=== PATIENT | female | born 1935 ===

== ENCOUNTER 2017-12-07 14:21 | Emergency (ER) | payer MEDICAID, MEDICARE ==
[2017-12-07 14:35] VITALS: RESP 18; TEMP 98; O2SAT 98
[2017-12-07 15:45] LABS: BASO # 0.1 K/uL (0.0-0.2); BASO % 1.3 % (0.0-2.0); EOS # 0.1 K/uL (0.0-0.7); EOS % 2.5 % (0.0-4.0); HEMOGLOBIN 11.3 g/dL (11.0-16.0); LYMPH # 1.4 K/uL (1.0-4.3); LYMPH % 30.1 % (20.0-40.0); MEAN CELL VOLUME 89.3 fL (81.0-99.0); MEAN CORPUSCULAR HEMOGLOBIN 30.5 pg (27.0-31.0); MEAN CORPUSCULAR HGB CONC 34.2 g/dL (33.0-37.0); MEAN PLATELET VOLUME 8.2 fL (7.2-11.7); MONO # 0.4 K/uL (0.0-0.8); MONO % 8.6 % (0.0-10.0); NEUT # 2.6 K/uL (1.8-7.0); NEUT % 57.5 % (50.0-75.0); RBC 3.7 Mil/uL (3.80-5.20); RED CELL DISTRIBUTION WIDTH 13.2 % (11.5-14.5); WHITE BLOOD COUNT 4.5 K/uL (4.8-10.8)
[2017-12-07 16:03] LABS: ALB/GLOB RATIO 1.1 (1.0-2.1); ALBUMIN 4.1 g/dL (3.5-5.0); ALT/SGPT 16 U/L (9-52); AST/SGOT 22 U/L (14-36); BLOOD UREA NITROGEN 32 mg/dL (7-17); CALCIUM 9.6 mg/dl (8.6-10.4); GFR AFRICAN-AMERICAN > 60; GFR NON-AFRICAN AMERICAN 53
[2017-12-07 16:09] LABS: B-TYPE NATRIURETIC PEPTIDE 122 pg/mL (0-900)
[2017-12-07] MEDS ORDERED: Sodium Chloride 0.9% 1,000 ML IV ONE (16:10)
--- NOTE | 2017-12-07 16:24 | RAD ---
HISTORY: Cough COMPARISON: No prior study available for comparison. TECHNIQUE: Chest PA and lateral FINDINGS: LUNGS: No active pulmonary disease. PLEURA: No significant pleural effusion identified. No pneumothorax apparent. CARDIOVASCULAR: Normal. OSSEOUS STRUCTURES: Mild multilevel degenerative spondylosis of the thoracic spine. . VISUALIZED UPPER ABDOMEN: Normal. OTHER FINDINGS: None. IMPRESSION: No acute infiltrates.
--- NOTE | 2017-12-07 17:02 | C.PDOC ---
Time Seen by Provider: 12/07/17 14:59 Chief Complaint (Nursing): Cough, Cold, Congestion History Per: Patient Onset/Duration Of Symptoms: Days (few) Current Symptoms Are (Timing): Still Present Associated Symptoms: Cough, Nasal Congestion Severity: Mild Additional History Per: Prior Records Past Medical History Reviewed: Historical Data, Nursing Documentation, Vital Signs Vital Signs: Last Vital Signs Temp 98 F 12/07/17 14:31 Pulse 73 12/07/17 14:31 Resp 18 12/07/17 14:31 BP 154/66 H 12/07/17 14:31 Pulse Ox 98 12/07/17 14:31 - Medical History PMH: Diabetes, HTN Family History: States: Unknown Family Hx - Social History Hx Tobacco Use: No Hx Alcohol Use: No Hx Substance Use: No Review Of Systems Except As Marked, All Systems Reviewed And Found Negative. Constitutional: Negative for: Fever ENT: Positive for: Nose Congestion. Negative for: Throat Pain Respiratory: Positive for: Cough. Negative for: Hemoptysis Gastrointestinal: Negative for: Vomiting, Abdominal Pain Musculoskeletal: Negative for: Neck Pain, Back Pain Neurological: Negative for: Weakness, Numbness Physical Exam - Physical Exam Appears: Non-toxic, No Acute Distress Skin: Normal Color, Warm, Dry, No Rash Head: Atraumatic, Normacephalic Eye(s): bilateral: PERRL, EOMI Oral Mucosa: Moist Throat: Normal Neck: Normal ROM, Supple Cardiovascular: Rhythm Regular Respiratory: Normal Breath Sounds, No Accessory Muscle Use Gastrointestinal/Abdominal: Soft, No Tenderness Extremity: Normal ROM, No Pedal Edema, No Calf Tenderness Neurological/Psych: Oriented x3, Normal Speech, Normal Cognition, Normal Motor, Normal Sensation ED Course And Treatment - Laboratory Results Result Diagrams: 12/07/17 15:37 12/07/17 15:37 ECG: Interpreted By Me, Viewed By Me ECG Rhythm: Sinus Rhythm ECG Interpretation: No Acute Changes Rate From EC O2 Sat by Pulse Oximetry: 98 Pulse Ox Interpretation: Normal - Radiology CXR: Viewed By Me, Read By Radiologist CXR Interpretation: Yes: No Acute Disease Progress Note: Pt feels better and wants to go home. Reassessment Condition: Improved Progress - Interventions Interventions:: Observation, Intravenous fluid - Medications Administered Oral: Antihistamine(H-1) - Data Reviewed Data Reviewed: Lab, Diagnostic imaging, EKG, Old records - Patient Status Patient status: Mostly improved - Continuity of Care Discussed patient case with:: Patient, ED Nurse - Patient Plan Patient Plan: Discharge, F/U with PCP, Continue present meds Disposition Counseled Patient/Family Regarding: Studies Performed, Diagnosis, Need For Followup - Disposition Disposition: HOME/ ROUTINE Disposition Time: 17:03 Condition: IMPROVED Additional Instructions: Take an daily antihistimine. Follow up with your doctor. Return to the ER if you develop fever, shortness of breath, vomiting, chest pain, worsening of symptoms or if you have any other concerns. Instructions: Cough, Runny Nose, and the Common Cold (DC) Forms: [facility] (South African) - Clinical Impression Clinical Impression: Cough, Nasal congestion
[2017-12-07 17:58] VITALS: BP 104/70; PULSE 74
--- NOTE | 2017-12-10 16:31 | CARD ---
APPROVED REPORT EKG Measurement Heart [id number] <Conclusion> Normal sinus rhythm Normal ECG
== END 2017-12-07 17:45 | disposition home or self-care (01) ==
LOC: C.ER 14:21
DX: R09.81 Nasal congestion (principal); R05 Cough; E11.9 Type 2 diabetes mellitus without complications; I10 Essential (primary) hypertension
CPT/HCPCS: 71046; 80053; 83880; 84484; 85025; 93005; 96360; 99284; J7040

== ENCOUNTER 2017-12-21 12:32 | Emergency (ER) | payer MEDICARE, MEDICAID ==
[2017-12-21 12:44] VITALS: PULSE 70; O2SAT 100
[2017-12-21] MEDS ORDERED: Bacitracin 500 Units/gm Oint Foilpak UD TOP ONE (13:06)
--- NOTE | 2017-12-21 13:12 | C.PDOC ---
History Of Present Illness 82 yo female with PMH HTN and diabetes c/o left foot pain x 1.5 week. Pt notes she had stocking on with boots and believes the area was rubbing in her boots. Notes the pain has improved, but states there is some redness prompting concern for infection. Notes the area has not gotten bigger. Denies fever or change in sensation. States she is up to date with tetanus s/p cat bite 6 mo ago. Time Seen by Provider: 12/21/17 12:54 Chief Complaint (Nursing): Lower Extremity Problem/Injury History Per: Patient History/Exam Limitations: no limitations Onset/Duration Of Symptoms: Days (1.5 week) Past Medical History Vital Signs: Last Vital Signs Temp 97.9 F 12/21/17 12:41 Pulse 70 12/21/17 12:41 Resp 16 12/21/17 12:41 BP 118/66 12/21/17 12:41 Pulse Ox 100 12/21/17 13:12 - Medical History PMH: Diabetes, HTN Family History: States: Unknown Family Hx - Social History Hx Tobacco Use: No Hx Alcohol Use: No Hx Substance Use: No Review Of Systems Except As Marked, All Systems Reviewed And Found Negative. Musculoskeletal: Positive for: Foot Pain Physical Exam - Physical Exam Appears: Well, Non-toxic, No Acute Distress Skin: Warm, Dry, Other (1cm circlular blister to the back of the left foot, no dishcarge, no surrouding erythema, no warmth. ) Head: Atraumatic, Normacephalic Eye(s): bilateral: Normal Inspection, EOMI Nose: Normal Oral Mucosa: Moist Neck: Normal ROM, Supple Chest: Symmetrical Back: Normal Inspection Extremity: Normal ROM, Tenderness (Mild ttp over the blister), Capillary Refill (<2 sec) Extremity: Bilateral: Normal Color And Temperature, Normal ROM Pulses: Left Dorsalis Pedis: Normal, Right Dorsalis Pedis: Normal Neurological/Psych: Oriented x3, Normal Speech, Normal Motor, Normal Sensation ED Course And Treatment O2 Sat by Pulse Oximetry: 100 Progress Note: Discussed with pt signs of infection. Discussed currently no evidence of infection. Pt notes it has self imporved over the last week. Instructed to keep monitoring, fill rx for abx if signs of infection arise and follow up with PMD in 1-2 days for wound check. Disposition - Disposition Disposition: HOME/ ROUTINE Disposition Time: 13:06 Condition: STABLE Additional Instructions: Follow up with your PMD in 1-2 days. Return to ER if symptoms persist or worsen. Prescriptions: Cephalexin [cephalexin] 500 mg PO BID #14 cap Mupirocin 2% Ointment [Bactroban Ointment] 1 appl TP TID #1 tube Instructions: Blisters Forms: [email or web address] (Danish) - Clinical Impression Clinical Impression: Blister of foot
[2017-12-21] MEDS ORDERED: Bacitracin 500 Units/gm Oint Foilpak UD ONE (14:07)
[2017-12-21 14:08] VITALS: BP 120/86; RESP 18; TEMP 98.1
== END 2017-12-21 14:08 | disposition home or self-care (01) ==
LOC: C.ER 12:32
DX: S90.822A Blister (nonthermal), left foot, initial encounter (principal); X58.XXXA Exposure to other specified factors, initial encounter; E11.9 Type 2 diabetes mellitus without complications; I10 Essential (primary) hypertension

== ENCOUNTER 2018-02-05 07:52 | Emergency (ER) | payer MEDICARE, OTHER ==
[2018-02-05 07:58] VITALS: BP 142/79; PULSE 75; RESP 17; TEMP 97.9; O2SAT 100
--- NOTE | 2018-02-05 09:12 | C.PDOC ---
History Of Present Illness 82 yo female, hx of htn, dm, presents with dry cough, dry throat, itching, she attributes to an allergy to a cat. pt states she has had symptoms over last week. no fevers, states right "ear clogged". no other complaints Time Seen by Provider: 02/05/18 09:02 Chief Complaint (Nursing): ENT Problem Past Medical History Reviewed: Historical Data, Nursing Documentation, Vital Signs Vital Signs: Last Vital Signs Temp 97.9 F 02/05/18 07:55 Pulse 75 02/05/18 07:55 Resp 17 02/05/18 07:55 BP 142/79 02/05/18 07:55 Pulse Ox 100 02/05/18 09:12 - Medical History PMH: Diabetes, HTN Family History: States: Unknown Family Hx - Social History Hx Tobacco Use: No Hx Alcohol Use: No Hx Substance Use: No Review Of Systems Except As Marked, All Systems Reviewed And Found Negative. Constitutional: Negative for: Fever ENT: Positive for: Nose Congestion, Other (throat itching) Respiratory: Positive for: Cough (dry). Negative for: Sputum Physical Exam - Physical Exam Appears: Well, No Acute Distress, Other (speaking full sentnces in nad) Skin: Normal Color, Warm, Dry Eye(s): bilateral: Normal Inspection, PERRL, EOMI Nose: Normal Throat: Normal, No Erythema, No Exudate Neck: Normal Cardiovascular: Rhythm Regular Respiratory: Normal Breath Sounds Gastrointestinal/Abdominal: Normal Exam, Soft, No Tenderness, No Guarding, No Rebound Back: Normal Inspection Extremity: Normal ROM ED Course And Treatment O2 Sat by Pulse Oximetry: 100 Medical Decision Making Medical Decision Making: suspect allergies, will obtain cxr r/o pna. pt well appearing speakign full sentences, smilgin innad. xr neg. pt well apperaing speaking full sentences. advise outpt fu. Disposition - Disposition Referrals: [facility] [Outside] [facility] [Outside] Disposition: HOME/ ROUTINE Disposition Time: 09:00 Condition: STABLE Additional Instructions: please follow up with your doctor/clinic. return to er with worsening symptoms or concerns. Prescriptions: Loratadine [Claritin] 10 mg PO DAILY PRN #15 tab PRN Reason: Allergy Symptoms Instructions: Cough, Adult (DC), Allergy to Pets Forms: [facility] (Bengali) - Clinical Impression Clinical Impression: Cough, Cat allergies
--- NOTE | 2018-02-05 11:10 | RAD ---
HISTORY: cough COMPARISON: Chest radiograph dated 12/07/2017. TECHNIQUE: Chest PA and lateral FINDINGS: LUNGS: No active pulmonary disease. PLEURA: No significant pleural effusion identified. No pneumothorax apparent. CARDIOVASCULAR: Atherosclerotic aortic calcifications. Cardiomediastinal silhouette within normal limits. OSSEOUS STRUCTURES: Unchanged. VISUALIZED UPPER ABDOMEN: Normal. OTHER FINDINGS: None. IMPRESSION: No active disease.
== END 2018-02-05 10:00 | disposition home or self-care (01) ==
LOC: C.ER 07:52
DX: R05 Cough (principal); Z91.09 Other allergy status, other than to drugs and biological substances

== ENCOUNTER 2018-02-25 10:27 | Emergency (ER) | payer MEDICARE, OTHER ==
[2018-02-25 10:44] VITALS: BMI 19.0
[2018-02-25 10:59] VITALS: RESP 18; O2SAT 96
[2018-02-25] MEDS ORDERED: Dexamethasone elixir 0.5 MG/5 ML UDC PO STA (11:00)
--- NOTE | 2018-02-25 11:07 | C.PDOC ---
History Of Present Illness 82 y/o female presents to ED with c/o left shoulder pain "for awhile" worse yesterday after moving boxes. At ED patient is requesting Toradol injection and Decadron, states medications have resolved pain in the past. Patient denies numbness, direct injury, chest pain, sob or any other complaints at this time. Time Seen by Provider: 02/25/18 10:57 Chief Complaint (Nursing): Upper Extremity Problem/Injury History Per: Patient History/Exam Limitations: no limitations Onset/Duration Of Symptoms: Days Current Symptoms Are (Timing): Still Present Quality: "Pain" Past Medical History Reviewed: Historical Data, Nursing Documentation, Vital Signs Vital Signs: Last Vital Signs Temp 98.1 F 02/25/18 12:19 Pulse 62 02/25/18 12:19 Resp 18 02/25/18 12:19 BP 141/80 02/25/18 12:19 Pulse Ox 96 02/25/18 12:19 - Medical History PMH: Diabetes, HTN Surgical History: No Surg Hx Family History: States: No Known Family Hx - Social History Hx Tobacco Use: No Hx Alcohol Use: No Hx Substance Use: No Review Of Systems Except As Marked, All Systems Reviewed And Found Negative. Musculoskeletal: Positive for: Shoulder Pain Neurological: Negative for: Numbness Physical Exam - Physical Exam Appears: Non-toxic, No Acute Distress Skin: Warm, Dry, No Rash Head: Atraumatic, Normacephalic Eye(s): bilateral: Normal Inspection Oral Mucosa: Moist Chest: Symmetrical, No Tenderness Extremity: Tenderness (left shoulder), No Deformity Pulses: Left Radial: Normal Neurological/Psych: Oriented x3, Normal Motor, Normal Sensation ED Course And Treatment ECG: Interpreted By Me, Viewed By Me ECG Rhythm: Sinus Bradycardia Rate From EC (BPM) O2 Sat by Pulse Oximetry: 96 (RA) Pulse Ox Interpretation: Normal Medical Decision Making Medical Decision Making: pt requesting decadron and toradol in er, no cp, only pain to left shoulder with rom. suspect msk pain. ekg wnl. pt well appearing s/p meds asking for dc. Disposition - Disposition Referrals: [facility] [Outside] [facility] [Outside] Disposition: HOME/ ROUTINE Disposition Time: 12:00 Condition: STABLE Additional Instructions: please follow up with your doctor. return to er with worsening symptoms or concerns. Prescriptions: Naproxen [Naprosyn] 500 mg PO BID PRN #14 tablet PRN Reason: Pain, Mild (1-3) Instructions: Shoulder Sprain Forms: [facility] (Pashto) - Clinical Impression Clinical Impression: Shoulder sprain - Scribe Statement The provider has reviewed the documentation as recorded by the Manjitibaustin Schmid All medical record entries made by the Manjitibaustin were at my direction and personally dictated by me. I have reviewed the chart and agree that the record accurately reflects my personal performance of the history, physical exam, medical decision making, and the department course for this patient. I have also personally directed, reviewed, and agree with the discharge instructions and disposition.
--- NOTE | 2018-02-25 11:53 | RAD ---
Date of service: 02/25/2018 PROCEDURE: Radiographs of the Left Shoulder HISTORY: pain COMPARISON: No prior. FINDINGS: BONES: No acute fracture. JOINTS: Acromioclavicular joint degenerative changes. SOFT TISSUES: Trace calcification along the lateral margin of the humeral head in internal rotation. OTHER FINDINGS: None. IMPRESSION: No demonstrated fracture or dislocation. Acromioclavicular joint degenerative changes. Infra spinatus calcific tendinitis.
[2018-02-25 12:20] VITALS: BP 141/80; PULSE 62; TEMP 98.1
--- NOTE | 2018-02-27 10:28 | CARD ---
APPROVED REPORT Date of service: 02/25/2018 EKG Measurement Heart [id number] [place] 160P61 [id number] <Conclusion> Sinus bradycardia Otherwise normal
== END 2018-02-25 12:20 | disposition home or self-care (01) ==
LOC: C.ER 10:27
DX: S43.402A Unspecified sprain of left shoulder joint, initial encounter (principal); X50.0XXA Overexertion from strenuous movement or load, initial encounter; Y92.9 Unspecified place or not applicable; I10 Essential (primary) hypertension
CPT/HCPCS: 73030; 93005; 96372; 99283; J1885; J8540

== ENCOUNTER 2018-05-12 12:42 | Emergency (ER) | payer MEDICARE, OTHER ==
[2018-05-12 12:42] VITALS: BMI 19.0
[2018-05-12 12:54] VITALS: O2SAT 99
--- NOTE | 2018-05-12 12:56 | C.PDOC ---
History Of Present Illness 82 year old female with PMHx of diabetes and HTN presents to the ED complaining of high blood pressure and palpitations. Patient reports her smokes cigarettes in the house and she feels she is getting sick. Denies any shortness of breath, fever, chills, cough. Also notes accidentally closed door on her finger. Denies any weakness, numbness, tingling. Chief Complaint (Nursing): High Blood Pressure History Per: Patient History/Exam Limitations: no limitations Onset/Duration Of Symptoms: Hrs Current Symptoms Are (Timing): Still Present Past Medical History Reviewed: Historical Data, Nursing Documentation, Vital Signs Vital Signs: Last Vital Signs Temp 98.5 F 05/12/18 12:48 Pulse 70 05/12/18 12:48 Resp 18 05/12/18 12:48 BP 217/76 H 05/12/18 12:48 Pulse Ox 99 05/12/18 12:48 - Medical History PMH: Diabetes, HTN, Hypercholesterolemia Other Surgeries: Hx of surgeries Family History: States: No Known Family Hx - Social History Hx Tobacco Use: No Hx Alcohol Use: No Hx Substance Use: No Review Of Systems Except As Marked, All Systems Reviewed And Found Negative. Constitutional: Negative for: Fever, Chills Cardiovascular: Positive for: Palpitations Respiratory: Negative for: Cough, Shortness of Breath Physical Exam - Physical Exam Appears: Non-toxic Skin: Warm, Dry Head: Normacephalic Eye(s): bilateral: Normal Inspection Neck: Normal ROM Chest: Symmetrical Cardiovascular: Rhythm Regular, Other (slightly hypertensive on exam ) Respiratory: Normal Breath Sounds, No Rales, No Rhonchi, No Wheezing Gastrointestinal/Abdominal: Soft, No Tenderness Extremity: Normal ROM, Capillary Refill (less than 2 sec to left thumb ), Other (mild ecchymosis on the palmar aspect of left thumb) Extremity: Bilateral: Normal ROM Pulses: Left Radial: Normal, Right Radial: Normal Neurological/Psych: Oriented x3, Normal Speech Gait: Steady ED Course And Treatment - Laboratory Results Result Diagrams: 05/12/18 13:16 05/12/18 13:16 ECG: Interpreted By Me, Viewed By Me ECG Rhythm: Sinus Rhythm Interpretation Of ECG: Normal axis, No ST/T wave changes Rate From EC O2 Sat by Pulse Oximetry: 99 (RA) Pulse Ox Interpretation: Normal Medical Decision Making Medical Decision Making: Impression: HTN, palpitations, anxiety Plan - EKG - Labwork - CXR - UA - Re-eval Patient refused XR of left hand. Reports she does not have any pain. On re-evaluation, patient reports feeling better and is in no acute distress. Labs are unremarkable. CXR shows no acute disease. Patient was instructed to follow up with physician/clinic in 1-2 days for further evaluation. Disposition - Disposition Referrals: [facility] [Outside] [facility] [Outside] [facility] [Outside] Disposition: HOME/ ROUTINE Disposition Time: 14:42 Condition: GOOD Additional Instructions: Please take yur blood pressure medication as directed by your pcp and follow up with your pcp in a few days. Return to the Ed if condition worsens. Instructions: High Blood Pressure in Adults Forms: [facility] (Northern Irish) - Clinical Impression Clinical Impression: Palpitation, Hypertension - Scribe Statement The provider has reviewed the documentation as recorded by the Scribe Elvira Cruz All medical record entries made by the Manjitibaustin were at my direction and personally dictated by me. I have reviewed the chart and agree that the record accurately reflects my personal performance of the history, physical exam, medical decision making, and the department course for this patient. I have also personally directed, reviewed, and agree with the discharge instructions and disposition.
[2018-05-12 13:28] LABS: BASO % 0.8 % (0.0-2.0); EOS # 0.1 K/uL (0.0-0.7); HEMOGLOBIN 12.2 g/dL (11.0-16.0); LYMPH # 1.5 K/uL (1.0-4.3); MEAN CELL VOLUME 89.1 fL (81.0-99.0); MEAN CORPUSCULAR HEMOGLOBIN 29.9 pg (27.0-31.0); MEAN CORPUSCULAR HGB CONC 33.6 g/dL (33.0-37.0); MEAN PLATELET VOLUME 8.6 fL (7.2-11.7); MONO # 0.4 K/uL (0.0-0.8); MONO % 6.9 % (0.0-10.0); NEUT # 3.2 K/uL (1.8-7.0); NEUT % 62.3 % (50.0-75.0); RBC 4.09 Mil/uL (3.80-5.20); RED CELL DISTRIBUTION WIDTH 13.6 % (11.5-14.5); WHITE BLOOD COUNT 5.1 K/uL (4.8-10.8)
[2018-05-12 13:36] LABS: SQUAMOUS EPITHIAL 1 /hpf (0-5); URINE BILIRUBIN NEGATIVE (NEGATIVE); URINE BLOOD NEGATIVE (NEGATIVE); URINE CLARITY Clear (Clear); URINE COLOR Straw (YELLOW); URINE GLUCOSE (UA) NORMAL (Normal); URINE LEUKOCYTE ESTERASE NEG Leu/uL (Negative); URINE PROTEIN NEGATIVE (NEGATIVE); URINE UROBILINOGEN NORMAL mg/dL (0.2-1.0)
[2018-05-12 13:41] LABS: ALB/GLOB RATIO 1.3 (1.0-2.1); ALBUMIN 4.2 g/dL (3.5-5.0); ALT/SGPT 16 U/L (9-52); AST/SGOT 23 U/L (14-36); BLOOD UREA NITROGEN 13 mg/dL (7-17); CALCIUM 9.8 mg/dl (8.6-10.4); GFR NON-AFRICAN AMERICAN > 60
[2018-05-12 13:52] LABS: B-TYPE NATRIURETIC PEPTIDE 335 pg/mL (0-900)
--- NOTE | 2018-05-12 13:57 | RAD ---
Date of service: 05/12/2018 PROCEDURE: CHEST RADIOGRAPH, 1 VIEW HISTORY: chest pain COMPARISON: Comparison chest 02/05/2018 FINDINGS: LUNGS: Clear. PLEURA: No pneumothorax or pleural fluid seen. CARDIOVASCULAR: Normal. OSSEOUS STRUCTURES: No significant abnormalities. VISUALIZED UPPER ABDOMEN: Normal. OTHER FINDINGS: None. IMPRESSION: No active disease.
[2018-05-12 14:43] VITALS: BP 162/78; PULSE 71; RESP 12; TEMP 98.4
--- NOTE | 2018-05-13 18:42 | CARD ---
APPROVED REPORT Date of service: 05/12/2018 EKG Measurement Heart [id number] 150P60 [id number] <Conclusion> Normal sinus rhythm Normal ECG
== END 2018-05-12 14:42 | disposition home or self-care (01) ==
LOC: C.ER 12:42
DX: I10 Essential (primary) hypertension (principal); R00.2 Palpitations; E78.00 Pure hypercholesterolemia, unspecified

== ENCOUNTER 2018-05-26 09:51 | Emergency (ER) | payer MEDICARE, OTHER ==
[2018-05-26 09:51] VITALS: BMI 19.0
[2018-05-26 10:03] VITALS: PULSE 70; TEMP 97.6; O2SAT 99
[2018-05-26] MEDS ORDERED: Oxycodone/Acetaminophen 5/325 mg Tab PO STA (10:25)
[2018-05-26] MEDS ORDERED: Oxycodone/Acetaminophen 5/325 mg Tab ONE (10:44)
[2018-05-26 10:45] VITALS: BP 165/60
[2018-05-26 10:48] VITALS: RESP 78
--- NOTE | 2018-05-26 10:51 | C.PDOC ---
History Of Present Illness 82 years old female presents to ED for complaints of back spasms that began yesterday. Patient states she reached down to hot die picker something and since then the spasms worsened. Denies direct trauma, chest pain, shortness of breath, blurry vision, or headache. 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 Patient also reports PMHx of HTN and has been complaint with medication; however, she states medications recently decreased in strength. Time Seen by Provider: 05/26/18 10:09 Chief Complaint (Nursing): Back Pain History Per: Patient History/Exam Limitations: no limitations Onset/Duration Of Symptoms: Hrs Current Symptoms Are (Timing): Still Present Previous Symptoms: None Associated Symptoms: None Exacerbating Factor(s): Nothing Recent travel outside of the [place]: No Past Medical History Reviewed: Historical Data, Nursing Documentation, Vital Signs Vital Signs: Last Vital Signs Temp 97.6 F 05/26/18 09:57 Pulse 70 05/26/18 09:57 Resp 78 H 05/26/18 10:47 BP 165/60 H 05/26/18 10:47 Pulse Ox 99 05/26/18 09:57 - Medical History PMH: Diabetes, HTN, Hypercholesterolemia Family History: States: Unknown Family Hx - Social History Hx Tobacco Use: No Hx Alcohol Use: No Hx Substance Use: No Review Of Systems Constitutional: Negative for: Fever, Chills Cardiovascular: Negative for: Chest Pain Respiratory: Negative for: Shortness of Breath Gastrointestinal: Negative for: Nausea, Vomiting Musculoskeletal: Positive for: Other (Back spasms ) Skin: Negative for: Rash Neurological: Negative for: Weakness, Numbness, Headache Physical Exam - Physical Exam Appears: Non-toxic, No Acute Distress, Other (hypertensive) Skin: Normal Color, Warm, Dry, No Rash Head: Atraumatic, Normacephalic, Other (Left sided muscle spasms towards the back of the head ) Eye(s): bilateral: Normal Inspection, PERRL, EOMI Oral Mucosa: Moist Neck: Normal ROM, Supple Chest: Symmetrical, No Tenderness Cardiovascular: Rhythm Regular, No Murmur Respiratory: Normal Breath Sounds, No Decreased Breath Sounds, No Rales, No Rhonchi, No Wheezing Gastrointestinal/Abdominal: Normal Exam, Bowel Sounds (Active ), Soft, No Tenderness Back: Normal Inspection, No CVA Tenderness Extremity: Normal ROM Extremity: Bilateral: Atraumatic, Normal Color And Temperature, Normal ROM Pulses: Left Radial: Normal, Right Radial: Normal Neurological/Psych: Oriented x3, Normal Speech Gait: Steady ED Course And Treatment O2 Sat by Pulse Oximetry: 99 (RA) Pulse Ox Interpretation: Normal Medical Decision Making Medical Decision Making: Plan: * Flexeril * Norvasc * Percocet Disposition - Disposition Referrals: [facility] Felicitas Chavez, [Non-Staff] - Disposition: HOME/ ROUTINE Disposition Time: 10:25 Condition: IMPROVED Additional Instructions: SAMY WATKINS, thank you for letting us take care of you today. The emergency medical care you received today was directed at your acute symptoms. If you were prescribed any medication, please fill it and take as directed. It may take several days for your symptoms to resolve. Return to the Emergency Department if your symptoms worsen, do not improve, or if you have any other p roblems. Please contact your doctor or call one of the physicians/clinics you have been referred to that are listed on the Patient Visit Information form that is included in your discharge packet. Bring any paperwork you were given at discharge with you along with any medications you are taking to your follow up visit. Our treatment cannot replace ongoing medical care by a primary care provider outside of the emergency department. Thank you for allowing the [facility] team to be part of your care today. Please follow up with your primary care doctor tomorrow for a blood pressure gladys ck and further management. Prescriptions: Cyclobenzaprine [Cyclobenzaprine HCl] 10 mg PO Q8 PRN #20 tab PRN Reason: Muscle Spasm Instructions: High Blood Pressure in Adults, Muscle Spasms (DC) Forms: [employer] [facility] (Mauritanian) - Clinical Impression Clinical Impression: Low back pain, Hypertension - Scribe Statement The provider has reviewed the documentation as recorded by the Manjitibaustin Mistry All medical record entries made by the Scribe were at my direction and personally dictated by me. I have reviewed the chart and agree that the record accurately reflects my personal performance of the history, physical exam, medical decision making, and the department course for this patient. I have also personally directed, reviewed, and agree with the discharge instructions and disposition.
== END 2018-05-26 10:48 | disposition home or self-care (01) ==
LOC: C.ER 09:51
DX: M54.5 Low back pain (principal); I10 Essential (primary) hypertension

== ENCOUNTER 2018-07-21 10:08 | Emergency (ER) | payer MEDICARE, OTHER ==
[2018-07-21 10:09] VITALS: BMI 19.0
[2018-07-21 10:34] VITALS: BP 145/73; PULSE 68; RESP 16; TEMP 98; O2SAT 100
--- NOTE | 2018-07-21 10:46 | C.PDOC ---
History Of Present Illness 82 year old female with PMHx of hypertension presents to the ED requesting medication refill. She states she ran out of Lisinopril 2 days ago, and her BP has been elevated since last night. Patient denies chest pain, palpitations, SOB, headache, dizziness, visual changes, or other physical complaints. Time Seen by Provider: 07/21/18 10:15 Chief Complaint (Nursing): Med Refill History Per: Patient History/Exam Limitations: no limitations Onset/Duration Of Symptoms: Days Past Medical History Reviewed: Historical Data, Nursing Documentation, Vital Signs Vital Signs: Last Vital Signs Temp 98 F 07/21/18 10:10 Pulse 68 07/21/18 10:10 Resp 16 07/21/18 10:10 BP 145/73 07/21/18 10:10 Pulse Ox 100 07/21/18 10:10 - Medical History PMH: Diabetes, HTN, Hypercholesterolemia Other Surgeries: Hx of surgeries Family History: States: No Known Family Hx - Social History Hx Tobacco Use: No Hx Alcohol Use: No Hx Substance Use: No Review Of Systems Constitutional: Negative for: Fever, Chills Cardiovascular: Negative for: Chest Pain Respiratory: Negative for: Cough Gastrointestinal: Negative for: Nausea, Vomiting Neurological: Negative for: Headache Physical Exam - Physical Exam Appears: Non-toxic, No Acute Distress Skin: Warm, Dry, No Rash Head: Normacephalic Eye(s): bilateral: Normal Inspection Oral Mucosa: Moist Neck: Supple Cardiovascular: Rhythm Regular Respiratory: Normal Breath Sounds, No Rales, No Rhonchi, No Wheezing Gastrointestinal/Abdominal: Normal Exam, Bowel Sounds, Soft, No Tenderness Extremity: Bilateral: Atraumatic, Normal Color And Temperature, Normal ROM Neurological/Psych: Oriented x3 Gait: Steady ED Course And Treatment O2 Sat by Pulse Oximetry: 100 (RA) Pulse Ox Interpretation: Normal Progress Note: Patient given dose of PO Lisinopril in ED. She was given Rx for lisinopril, and she was instructed to follow up with PMD in 1-2 days. She understands she should return to ED if symptoms worsen. Disposition Counseled Patient/Family Regarding: Diagnosis, Need For Followup, Rx Given - Disposition Referrals: [facility] [Outside] Disposition: HOME/ ROUTINE Disposition Time: 10:45 Condition: STABLE Prescriptions: Lisinopril [Zestril] 20 mg PO DAILY #30 tab NS Instructions: High Blood Pressure (DC) Forms: [employer] (Macedonian) Print Language: TAJIK - Clinical Impression Clinical Impression: Hypertension, Medication refill - Scribe Statement The provider has reviewed the documentation as recorded by the Scribaustin Cruz All medical record entries made by the Manjitibe were at my direction and personally dictated by me. I have reviewed the chart and agree that the record accurately reflects my personal performance of the history, physical exam, medical decision making, and the department course for this patient. I have also personally directed, reviewed, and agree with the discharge instructions and disposition.
== END 2018-07-21 10:49 | disposition home or self-care (01) ==
LOC: C.ER 10:08
DX: I10 Essential (primary) hypertension (principal); Z76.0 Encounter for issue of repeat prescription

== ENCOUNTER 2018-07-29 12:30 | Emergency (ER) | payer MEDICARE, OTHER ==
[2018-07-29 12:31] VITALS: BMI 19.0
[2018-07-29 12:35] VITALS: BP 138/74; PULSE 67; RESP 17; TEMP 97.9; O2SAT 98
--- NOTE | 2018-07-29 13:22 | C.PDOC ---
History Of Present Illness 82 y/o female presents to the ER for medication refill. Patient states that she was evaluated for back pain on 07/21/18 and she was discharged with prescription of Flexeril. However, patient reports that she has finished the Flexeril and she has not been able to follow up with her PMD. she reports that the medication does well to allieviate her pain. Denies having back pain and urinary symptoms. Time Seen by Provider: 07/29/18 13:05 Chief Complaint (Nursing): Back Pain History Per: Patient History/Exam Limitations: no limitations Past Medical History Reviewed: Historical Data, Nursing Documentation, Vital Signs Vital Signs: Last Vital Signs Temp 97.9 F 07/29/18 12:34 Pulse 67 07/29/18 12:34 Resp 17 07/29/18 12:34 BP 138/74 07/29/18 12:34 Pulse Ox 98 07/29/18 12:34 - Medical History PMH: Diabetes, HTN, Hypercholesterolemia Other Surgeries: Hx of surgeries Family History: States: No Known Family Hx - Social History Hx Tobacco Use: No Hx Alcohol Use: No Hx Substance Use: No Review Of Systems Constitutional: Negative for: Fever, Chills, Weakness Eyes: Positive for: Other ((-) scleral icterus). Negative for: Redness ENT: Negative for: Mouth Swelling Cardiovascular: Negative for: Chest Pain Respiratory: Negative for: Cough, Shortness of Breath Gastrointestinal: Negative for: Nausea, Vomiting, Diarrhea Genitourinary: Negative for: Dysuria, Frequency, Incontinence, Hematuria Musculoskeletal: Negative for: Back Pain Skin: Negative for: Rash Neurological: Negative for: Weakness, Numbness, Dizziness Physical Exam - Physical Exam Appears: Non-toxic, No Acute Distress Skin: Normal Color, Warm, Dry Head: Atraumatic, Normacephalic Eye(s): bilateral: Normal Inspection Nose: Normal Oral Mucosa: Moist Neck: Supple Chest: Symmetrical Neurological/Psych: Oriented x3, Normal Speech ED Course And Treatment O2 Sat by Pulse Oximetry: 98 (RA) Pulse Ox Interpretation: Normal Medical Decision Making Medical Decision Making: Patient has been discharged with prescription for Flexeril. Disposition Counseled Patient/Family Regarding: Diagnosis, Need For Followup, Rx Given - Disposition Disposition: HOME/ ROUTINE Disposition Time: 13:20 Condition: STABLE Additional Instructions: SAMY FLOWER ALBA, thank you for letting us take care of you today. Your provider was Geeta Nielson MD and you were treated for Medication Refill. The emergency medical care you received today was directed at your acute symptoms. If you were prescribed any medication, please fill it and take as directed. It may take several days for your symptoms to resolve. Return to the Emergency Department if your symptoms worsen, do not improve, or if you have any other problems. Please contact your doctor or call one of the physicians/clinics you have been referred to that are listed on the Patient Visit Information form that is included in your discharge packet. Bring any paperwork you were given at discharge with you along with any medications you are taking to your follow up visit. Our treatment cannot replace ongoing medical care by a primary care provider outside of the emergency department. Thank you for allowing the [facility] team to be part of your care today. Prescriptions: RX: Cyclobenzaprine [Flexeril] 10 mg PO BID PRN 7 Days #14 tab PRN Reason: Pain, Moderate (4-7) Instructions: Cyclobenzaprine Forms: [employer] (Yemeni), General Discharge Instructions - Clinical Impression Clinical Impression: Medication refill - PA / [employer] / Resident Statement MD/DO has reviewed & agrees with the documentation as recorded. - Scribe Statement The provider has reviewed the documentation as recorded by the Julia Badillo Provider Attestation All medical record entries made by the Julia were at my direction and personal ly dictated by me. I have reviewed the chart and agree that the record accurately reflects my personal performance of the history, physical exam, medical decision making, and the department course for this patient. I have also personally directed, reviewed, and agree with the discharge instructions and disposition.
== END 2018-07-29 13:47 | disposition home or self-care (01) ==
LOC: C.ER 12:30
DX: Z76.0 Encounter for issue of repeat prescription (principal); M54.9 Dorsalgia, unspecified; E11.9 Type 2 diabetes mellitus without complications; E78.00 Pure hypercholesterolemia, unspecified; I10 Essential (primary) hypertension

== ENCOUNTER 2018-11-18 08:27 | Outpatient (CLI) | payer MEDICARE, OTHER | END 2018-11-18 08:28 | disposition home or self-care (01) | LOC: C.CTH 08:27 | DX: R91.1 Solitary pulmonary nodule (principal) ==

== ENCOUNTER 2018-12-27 10:31 | Emergency (ER) | payer OTHER | END 2018-12-27 11:41 | disposition home or self-care (01) | LOC: C.ER 10:31 ==